=== PATIENT | male | born 1955 | race Caucasian/White ===

== ENCOUNTER 2017-12-31 20:25 | Inpatient (IN) | payer MEDICAID, MEDICARE ==
[~2017-12-31] VITALS: Ht 190.5 cm; Wt 97.4 kg
[~2017-12-31 20:25] MED LIST: BRIM15DR8 OU; ESOM20CA31 PO; LISI-662 PO; XALA2.5OS OU
[2017-12-31] MEDS ORDERED: ONDANSETRON HCL 4 MG/2 ML VIAL IVP PRN (21:30)
[2017-12-31] MEDS ORDERED: ACETAMINOPHEN 325 MG TABLET PO PRN (21:30)
[2017-12-31] MEDS ORDERED: HydrALAZINE HCL 20 MG/ML VIAL IVP PRN ×2 (22:45→23:45)
[2018-01-01] VITALS (8 sets, daily range): BP systolic 147–191; BP diastolic 82–100
[2018-01-01] MEDS: LOSARTAN POTASSIUM 25 MG TABLET PO SCH ×2 (00:08→21:02)
[2018-01-01] MEDS ORDERED: ONDANSETRON HCL 4 MG/2 ML VIAL IVP PRN (01:45)
[2018-01-01 07:18] LABS: BASOPHILS % (AUTO) 1.3 % (0.0-2.0); EOSINOPHILS % (AUTO) 0.3 % (1.0-6.0); HEMOGLOBIN 11.2 g/dL (13.5-17.5); LYMPHOCYTES # (AUTO) 0.9 K/uL (1.0-4.8); LYMPHOCYTES % (AUTO) 18.2 % (22.0-44.0); MEAN CORPUSCULAR HEMOGLOBIN 31.1 pg (26.0-34.0); MEAN CORPUSCULAR VOLUME 91 fL (80-100); MONOCYTES # (AUTO) 0.4 K/uL (0.1-1.0); MONOCYTES % (AUTO) 9.2 % (2.0-9.0); NEUTROPHILS # (AUTO) 3.4 K/uL (1.8-7.7); PLATELET COUNT (AUTO) 205 K/uL (150-450); RED BLOOD CELL COUNT(AUTO) 3.61 MIL/uL (4.50-5.90); RED CELL DISTRIBUTION WIDTH 19.4 % (11.5-14.5)
[2018-01-01 07:22] LABS: ANION GAP 17 mmol/L (8-16); CALCIUM, TOTAL 8.4 mg/dL (8.8-10.5); CARBON DIOXIDE 20 mmol/L (22-29); CHLORIDE 101 mmol/L (98-107); CREATININE 0.61 mg/dL (0.60-1.30); GLOMERULAR FILTR. RATE CALC > 60 mL/min (>60); GLUCOSE,RANDOM 71 mg/dL (70-110); POTASSIUM 3.3 mmol/L (3.5-5.1); SODIUM SERUM 138 mmol/L (136-145); UREA NITROGEN, BLOOD 9 mg/dL (7-18)
[2018-01-01] MEDS ORDERED: ALBUTEROL SULFATE 2.5 MG/0.5 ML NEB SOLUTION NEB PRN (10:00)
[2018-01-01] MEDS ORDERED: 0.9% SODIUM CHLORIDE 10 ML SYRINGE IVP PRN (10:00)
[2018-01-01] MEDS ORDERED: IPRATROPIUM BROMIDE 0.5 MG/2.5 ML NEB SOLUTION NEB PRN (10:00)
[2018-01-01] MEDS: DOCUSATE SODIUM 100 MG CAPSULE PO SCH ×2 (10:00→21:00)
[2018-01-01 10:22] LABS: THYROID STIMULATING HORMONE 1.15 uIU/mL (0.36-3.74)
[2018-01-01] MEDS: PANTOPRAZOLE SODIUM 40 MG/VIAL IVP SCH (10:22)
[2018-01-01] MEDS: HEPARIN SODIUM,PORCINE 5,000 UNITS/ML VIAL SQ SCH ×3 (10:23→23:59)
[2018-01-01] MEDS: AmLODIPine BESYLATE 5 MG TABLET PO SCH ×2 (12:05→21:03)
[2018-01-01] MEDS: ONDANSETRON HCL 4 MG/2 ML VIAL IVP PRN (12:09)
[2018-01-01] MEDS: ACETAMINOPHEN 325 MG TABLET PO PRN (15:47)
[2018-01-01] MEDS: IPRATROPIUM BROMIDE 0.5 MG/2.5 ML NEB SOLUTION NEB SCH (19:07)
[2018-01-01] MEDS: ALBUTEROL SULFATE 2.5 MG/0.5 ML NEB SOLUTION NEB SCH (19:07)
[2018-01-01] MEDS ORDERED: POTASSIUM CHL 10 MEQ/WATER 50 ML IV PRN (19:15)
[2018-01-01] MEDS ORDERED: MAGNESIUM SULFATE 4 GM/WATER 100 ML IV PRN (19:15)
[2018-01-01 20:49] LABS: ALBUMIN 3.6 g/dL (3.4-5.0)
[2018-01-01] MEDS: MAGNESIUM OXIDE 400 MG TABLET PO PRN ×2 (21:03→23:59)
[2018-01-01] MEDS: POTASSIUM CHLORIDE 20 MEQ ER TABLET PO PRN (23:59)
[2018-01-02] MEDS: ONDANSETRON HCL 4 MG/2 ML VIAL IVP PRN ×2 (00:02→20:37)
[2018-01-02] MEDS: IPRATROPIUM BROMIDE 0.5 MG/2.5 ML NEB SOLUTION NEB SCH ×4 (01:59→19:40)
[2018-01-02] MEDS: ALBUTEROL SULFATE 2.5 MG/0.5 ML NEB SOLUTION NEB SCH ×4 (01:59→19:41)
[2018-01-02] MEDS: ZOLPIDEM TARTRATE 5 MG TABLET PO PRN ×2 (02:19→20:38)
[2018-01-02] MEDS: MAGNESIUM OXIDE 400 MG TABLET PO PRN ×2 (02:19→10:11)
[2018-01-02 05:42] VITALS: BP 150/86
[2018-01-02 06:32] LABS: EOSINOPHILS % (AUTO) 3.4 % (1.0-6.0); HEMATOCRIT 33.4 % (41-53); HEMOGLOBIN 11.2 g/dL (13.5-17.5); LYMPHOCYTES # (AUTO) 1.2 K/uL (1.0-4.8); LYMPHOCYTES % (AUTO) 26.3 % (22.0-44.0); MEAN CORPUSCULAR HEMOGLOBIN 30.6 pg (26.0-34.0); MEAN CORPUSCULAR HGB CONC 33.6 G/dL (31.0-37.0); MEAN CORPUSCULAR VOLUME 91 fL (80-100); MONOCYTES # (AUTO) 0.5 K/uL (0.1-1.0); MONOCYTES % (AUTO) 10.5 % (2.0-9.0); NEUTROPHILS # (AUTO) 2.7 K/uL (1.8-7.7); NEUTROPHILS % (AUTO) 58.8 % (40.0-70.0); PLATELET COUNT (AUTO) 210 K/uL (150-450); RED BLOOD CELL COUNT(AUTO) 3.67 MIL/uL (4.50-5.90); RED CELL DISTRIBUTION WIDTH 19.7 % (11.5-14.5)
[2018-01-02 06:55] LABS: ANION GAP 10 mmol/L (8-16); CALCIUM, TOTAL 8.4 mg/dL (8.8-10.5); CARBON DIOXIDE 24 mmol/L (22-29); CHLORIDE 102 mmol/L (98-107); CREATININE 0.76 mg/dL (0.60-1.30); GLOMERULAR FILTR. RATE CALC > 60 mL/min (>60); GLUCOSE,RANDOM 113 mg/dL (70-110); POTASSIUM 3.5 mmol/L (3.5-5.1); SODIUM SERUM 136 mmol/L (136-145); UREA NITROGEN, BLOOD 8 mg/dL (7-18)
[2018-01-02 07:36] VITALS: BP 171/97
[2018-01-02] MEDS: POTASSIUM CHLORIDE 20 MEQ ER TABLET PO PRN (10:11)
[2018-01-02] MEDS: DOCUSATE SODIUM 100 MG CAPSULE PO SCH ×2 (10:11→20:38)
[2018-01-02] MEDS: HEPARIN SODIUM,PORCINE 5,000 UNITS/ML VIAL SQ SCH ×3 (10:11→23:51)
[2018-01-02] MEDS: PANTOPRAZOLE SODIUM 40 MG/VIAL IVP SCH (10:11)
[2018-01-02] MEDS: AmLODIPine BESYLATE 5 MG TABLET PO SCH ×2 (10:11→20:38)
[2018-01-02 11:47] VITALS: BP 162/88
[2018-01-02 15:28] VITALS: BP 143/90
[2018-01-02 19:23] VITALS: BP 151/96
[2018-01-02] MEDS: LOSARTAN POTASSIUM 25 MG TABLET PO SCH (20:37)
[2018-01-02] MEDS: GENTAMICIN SULFATE 0.1% 15 GM OINTMENT TP SCH (20:38)
[2018-01-02] MEDS: CHLORHEXIDINE GLUCONATE 4% 118 ML TOPICAL LIQUID TP SCH (20:39)
[2018-01-03 00:15] VITALS: BP 147/89
[2018-01-03] MEDS: ALBUTEROL SULFATE 2.5 MG/0.5 ML NEB SOLUTION NEB SCH ×4 (02:12→20:02)
[2018-01-03] MEDS: IPRATROPIUM BROMIDE 0.5 MG/2.5 ML NEB SOLUTION NEB SCH ×4 (02:12→20:02)
[2018-01-03 04:49] VITALS: BP 152/86
[2018-01-03 07:58] VITALS: BP 141/92
[2018-01-03] MEDS: PANTOPRAZOLE SODIUM 40 MG/VIAL IVP SCH (08:30)
[2018-01-03] MEDS: HEPARIN SODIUM,PORCINE 5,000 UNITS/ML VIAL SQ SCH ×2 (08:30→15:30)
[2018-01-03] MEDS: GENTAMICIN SULFATE 0.1% 15 GM OINTMENT TP SCH ×2 (08:31→20:38)
[2018-01-03] MEDS: CHLORHEXIDINE GLUCONATE 4% 118 ML TOPICAL LIQUID TP SCH ×2 (08:31→20:38)
[2018-01-03] MEDS: DOCUSATE SODIUM 100 MG CAPSULE PO SCH ×3 (08:31→20:53)
[2018-01-03] MEDS: AmLODIPine BESYLATE 5 MG TABLET PO SCH ×2 (08:31→20:38)
[2018-01-03 10:05] LABS: BASOPHILS % (AUTO) 0.9 % (0.0-2.0); EOSINOPHILS % (AUTO) 2.9 % (1.0-6.0); HEMOGLOBIN 11.9 g/dL (13.5-17.5); LYMPHOCYTES # (AUTO) 1.1 K/uL (1.0-4.8); LYMPHOCYTES % (AUTO) 26.4 % (22.0-44.0); MEAN CORPUSCULAR HEMOGLOBIN 30.5 pg (26.0-34.0); MEAN CORPUSCULAR VOLUME 92 fL (80-100); MONOCYTES # (AUTO) 0.5 K/uL (0.1-1.0); MONOCYTES % (AUTO) 11.2 % (2.0-9.0); NEUTROPHILS # (AUTO) 2.5 K/uL (1.8-7.7); NEUTROPHILS % (AUTO) 58.6 % (40.0-70.0); PLATELET COUNT (AUTO) 226 K/uL (150-450); RED CELL DISTRIBUTION WIDTH 19.4 % (11.5-14.5)
[2018-01-03] MEDS ORDERED: VANCOMYCIN HCL 1.25 GM in DEXTROSE 5%-WATER 250 ML IV ONE (10:15)
[2018-01-03 10:18] LABS: ANION GAP 12 mmol/L (8-16); CALCIUM, TOTAL 8.8 mg/dL (8.8-10.5); CARBON DIOXIDE 23 mmol/L (22-29); CHLORIDE 103 mmol/L (98-107); CREATININE 0.91 mg/dL (0.60-1.30); GLOMERULAR FILTR. RATE CALC > 60 mL/min (>60); GLUCOSE,RANDOM 149 mg/dL (70-110); POTASSIUM 3.5 mmol/L (3.5-5.1); SODIUM SERUM 138 mmol/L (136-145); UREA NITROGEN, BLOOD 7 mg/dL (7-18)
[2018-01-03] MEDS: ONDANSETRON HCL 4 MG/2 ML VIAL IVP PRN (11:26)
[2018-01-03] MEDS: POTASSIUM CHLORIDE 20 MEQ ER TABLET PO PRN (11:26)
[2018-01-03 11:27] VITALS: BP 144/97
[2018-01-03] MEDS ORDERED: MAGNESIUM SULFATE 2 GM/WATER 50 ML IV PRN (14:15)
[2018-01-03] MEDS ORDERED: VANCOMYCIN HCL 1.25 GM in DEXTROSE 5%-WATER 250 ML IV SCH (15:00)
[2018-01-03 15:32] VITALS: BP 142/91
[2018-01-03] MEDS: VANCOMYCIN HCL 1 GM/D5% WATER 200 ML IV SCH (17:33)
[2018-01-03 19:48] VITALS: BP 133/91
[2018-01-03] MEDS: LOSARTAN POTASSIUM 25 MG TABLET PO SCH (20:38)
[2018-01-03] MEDS: ASCORBIC ACID 500 MG TABLET PO SCH (20:38)
[2018-01-03] MEDS: ACETAMINOPHEN 325 MG TABLET PO PRN (20:39)
[2018-01-03] MEDS: ZOLPIDEM TARTRATE 5 MG TABLET PO PRN (20:39)
[2018-01-04 00:11] VITALS: BP 147/75
[2018-01-04] MEDS: HEPARIN SODIUM,PORCINE 5,000 UNITS/ML VIAL SQ SCH ×3 (00:48→15:28)
[2018-01-04] MEDS: VANCOMYCIN HCL 1 GM/D5% WATER 200 ML IV SCH ×3 (00:48→15:28)
[2018-01-04] MEDS: ALBUTEROL SULFATE 2.5 MG/0.5 ML NEB SOLUTION NEB SCH ×3 (02:00→14:48)
[2018-01-04] MEDS: IPRATROPIUM BROMIDE 0.5 MG/2.5 ML NEB SOLUTION NEB SCH ×3 (02:00→14:48)
[2018-01-04 07:24] LABS: BASOPHILS % (AUTO) 1.8 % (0.0-2.0); EOSINOPHILS % (AUTO) 5.7 % (1.0-6.0); HEMATOCRIT 34.2 % (41-53); HEMOGLOBIN 11.5 g/dL (13.5-17.5); LYMPHOCYTES # (AUTO) 1.1 K/uL (1.0-4.8); LYMPHOCYTES % (AUTO) 27.4 % (22.0-44.0); MEAN CORPUSCULAR HEMOGLOBIN 31.1 pg (26.0-34.0); MEAN CORPUSCULAR HGB CONC 33.6 G/dL (31.0-37.0); MEAN CORPUSCULAR VOLUME 93 fL (80-100); MONOCYTES # (AUTO) 0.4 K/uL (0.1-1.0); MONOCYTES % (AUTO) 10.9 % (2.0-9.0); NEUTROPHILS # (AUTO) 2.1 K/uL (1.8-7.7); NEUTROPHILS % (AUTO) 54.2 % (40.0-70.0); PLATELET COUNT (AUTO) 228 K/uL (150-450); RED BLOOD CELL COUNT(AUTO) 3.69 MIL/uL (4.50-5.90); RED CELL DISTRIBUTION WIDTH 19.3 % (11.5-14.5)
[2018-01-04 07:38] LABS: ANION GAP 10 mmol/L (8-16); CALCIUM, TOTAL 9.1 mg/dL (8.8-10.5); CARBON DIOXIDE 24 mmol/L (22-29); CHLORIDE 103 mmol/L (98-107); CREATININE 0.74 mg/dL (0.60-1.30); GLOMERULAR FILTR. RATE CALC > 60 mL/min (>60); GLUCOSE,RANDOM 114 mg/dL (70-110); POTASSIUM 4.2 mmol/L (3.5-5.1); SODIUM SERUM 137 mmol/L (136-145); UREA NITROGEN, BLOOD 8 mg/dL (7-18)
[2018-01-04 07:48] VITALS: BP 142/93
[2018-01-04] MEDS: DOCUSATE SODIUM 100 MG CAPSULE PO SCH (08:11)
[2018-01-04] MEDS: AmLODIPine BESYLATE 5 MG TABLET PO SCH (08:11)
[2018-01-04] MEDS: ASCORBIC ACID 500 MG TABLET PO SCH (08:11)
[2018-01-04] MEDS: PANTOPRAZOLE SODIUM 40 MG/VIAL IVP SCH (08:12)
[2018-01-04] MEDS: CHLORHEXIDINE GLUCONATE 4% 118 ML TOPICAL LIQUID TP SCH (08:13)
[2018-01-04] MEDS: GENTAMICIN SULFATE 0.1% 15 GM OINTMENT TP SCH (08:13)
[2018-01-04] MEDS: ONDANSETRON HCL 4 MG/2 ML VIAL IVP PRN (08:43)
[2018-01-04] MEDS ORDERED: ZINC SULFATE 220 MG CAPSULE PO SCH (09:00)
[2018-01-04] MEDS ORDERED: MULTIVITAMINS WITH MINERALS, THERAPEUTIC TABLET PO SCH (09:00)
[2018-01-04 11:25] VITALS: BP 139/84
[2018-01-04 15:34] VITALS: BP 152/90
[2018-01-04] MEDS ORDERED: LOSA25TA21 PO (15:42)
[2018-01-04] MEDS ORDERED: PANT40TA25 IVP (15:43)
[2018-01-04] MEDS ORDERED: MULT1CAP32 PO (15:43)
[2018-01-04] MEDS ORDERED: VANC1IV IV (15:44)
[2018-01-04] MEDS ORDERED: ZINC220 PO (15:44)
[2018-01-04] MEDS ORDERED: DSS100 PO (15:46)
[2018-01-04] MEDS ORDERED: AMLO-511 PO (15:46)
[2018-01-04] MEDS ORDERED: ASCO500 PO (15:46)
[2018-01-04] MEDS ORDERED: GENT30CR TP (15:47)
[2018-01-04] MEDS ORDERED: CHLO240L TP (15:50)
== END 2018-01-04 16:20 | DRG 305 ==
LOC: EMS 20:26 → 5N 21:57 → UNDOADMIN 21:57 → 6N 21:57
PROVIDERS: ADMIT Internal Medicine; ATTEND Internal Medicine
DX: I10 Essential (primary) hypertension (principal); S81.802S Unspecified open wound, left lower leg, sequela; B99.9 Unspecified infectious disease; K21.9 Gastro-esophageal reflux disease without esophagitis; H40.9 Unspecified glaucoma; Z98.1 Arthrodesis status; X58.XXXS Exposure to other specified factors, sequela
CPT/HCPCS: 83735; 84132; 84153; 84443; 87070; 87081; 87205; 93005; 94640; 96374; 99285; C9113; J0360; J1644; J2405; J3370; J3475; J7060